=== PATIENT | male | born 1955 | race African-American/Black ===

== ENCOUNTER 2018-05-04 07:25 | Emergency (ER) | payer BC ==
[~2018-05-04] VITALS: Ht 177.8 cm; Wt 70.9 kg
[2018-05-04 07:33] VITALS: TEMP 97.8
[2018-05-04] MEDS ORDERED: PRINIVIL40 MG PO (08:02)
[2018-05-04] MEDS ORDERED: NAPROSYN500 MG PO (08:02)
[2018-05-04] MEDS ORDERED: LIPITOR 10MG10 MG PO (08:02)
[2018-05-04] MEDS ORDERED: LOPRESSOR 550 MG/TAB PO (08:02)
[2018-05-04] MEDS ORDERED: CELEXA40 MG PO (08:03)
[2018-05-04] MEDS ORDERED: FLOMAX 0.40.4 MG/CAP PO (08:03)
[2018-05-04 08:45] LABS: BASO % 1.1 % (0.0-2.0); EOS # 0.1 (0.0-0.7); EOS % 1.4 % (0-4.0); GRAN # 1.6 (1.4-6.5); HEMOGLOBIN 12.5 g/dl (13.5-18.0); LYMPH # 1.5 (1.2-3.4); LYMPH % 39.7 % (20.0-51.0); MEAN CELL VOLUME 101 fl (80.0-100.0); MEAN CORPUSCULAR HEMOGLOBIN 35 pg (27.0-31.0); MEAN CORPUSCULAR HGB CONC 35 g/dl (33.0-37.0); MEAN PLATELET VOLUME 10.7 fl (7.4-10.4); MONO # 0.5 (0.1-0.6); MONO % 13.8 % (1.7-9.3); PLATELET COUNT 212 K/mm3 (130-400); RED BLOOD COUNT 3.58 M/mm3 (4.20-5.60); REDCELL DISTRIBUTION WIDTH-CV 13.2 % (11.5-14.5)
[2018-05-04 08:51] LABS: HEMATOCRIT 36.2 % (42.0-52.0)
[2018-05-04 09:00] LABS: ALBUMIN 2.9 gm/dL (3.5-5.0); CALCIUM 8.6 mg/dL (8.4-10.2); CREATININE, serum 1.38 mg/dL (0.66-1.25); MAGNESIUM 1.9 mg/dL (1.6-2.3); POTASSIUM 3.9 mmol/L (3.4-5.0); TOTAL PROTEIN 6.3 gm/dL (6.4-8.2)
[2018-05-04 09:02] LABS: COLLECTION METHOD CLEAN CATCH
[2018-05-04 09:11] LABS: TROPONIN-I 0.018 ng/mL (0.000-0.034)
[2018-05-04 09:46] LABS: HYALINE CAST >12 /lpf; MUCOUS Present /lpf; PH 5 (5-8); SQUAMOUS EPITHELIAL 0-2 /hpf; URINE APPEARANCE Cloudy; URINE BACTERIA Rare /hpf; URINE BILIRUBIN Negative (NEGATIVE); URINE BLOOD Negative (NEGATIVE); URINE CALCIUM OXALATE CRYSTAL Present /hpf; URINE COLOR Amber; URINE GLUCOSE Negative (NEGATIVE); URINE KETONE Negative (NEGATIVE); URINE LEUKOCYTE ESTERASE Negative (NEGATIVE); URINE NITRATE Negative (NEGATIVE); URINE PROTEIN(semi-quant) 1+ (NEGATIVE); URINE RBC 0-2 /hpf; URINE UROBILINOGEN Negative (NEGATIVE)
[2018-05-04 10:37] LABS: INR 1.1 (0.8-3.0)
[2018-05-04] MEDS ORDERED: HCTZ12.5TAB PO (11:39)
--- NOTE | 2018-05-04 11:39 | NUR ---
SW received referral for A&D consult. JOSE ALBERTO met with patient and patient partner at bedside. Pt reports that he has not thought of alcohol detox and it trying to get his head wrapped around not drinking. PT declines AA support group at this time. Pt declines safe detox placement. Pt declines outpatient detox, or recovery therapy at this time. SW educated patient on alcohol recovery options and alternative safe detox methods, SW discussed safety plan with patient and creating a support group. SW gave patient information for outpatient services. Pt reports that he is going to try and quit on his own by reducing consumption and eventually stopping. Patient reports use that would indicated tolerance by consumption and present with a long history of alcohol use and overuse based on reports of consuming 1 pint of E&J enmanuel per day. It is unclear if the pt present with alcohol dependence at this time due to short interview. Patient has information to follow-up if he chooses to have therapy support. Patient presents as guarded to change. Nothing follows.
[2018-05-04 11:50] VITALS: BP 155/81; PULSE 51
== END 2018-05-04 11:50 | disposition home or self-care (01) ==
LOC: COL.ER 07:25
PROVIDERS: Emergency Medicine
DX: I95.1 Orthostatic hypotension (principal); F10.10 Alcohol abuse, uncomplicated; E46 Unspecified protein-calorie malnutrition
CPT/HCPCS: J7030

== ENCOUNTER 2019-01-03 13:30 | Emergency (ER) | payer BC ==
[~2019-01-03] VITALS: Ht 177.8 cm; Wt 85.5 kg
[~2019-01-03 13:30] MED LIST: CELEXA40 MG PO; FLOMAX 0.40.4 MG/CAP PO; HCTZ12.5TAB PO; LIPITOR 10MG10 MG PO; LOPRESSOR 550 MG/TAB PO; NAPROSYN500 MG PO; PRINIVIL40 MG PO
[2019-01-03 13:37] VITALS: TEMP 98.8
[2019-01-03 14:47] LABS: BASO % 0.5 % (0.0-2.0); GRAN # 4.5 (1.4-6.5); GRAN % 73.6 % (42.2-75.2); HEMATOCRIT 40.8 % (42.0-52.0); HEMOGLOBIN 14.1 g/dl (13.5-18.0); LYMPH # 1.1 (1.2-3.4); LYMPH % 18.2 % (20.0-51.0); MEAN CELL VOLUME 90 fl (80.0-100.0); MEAN CORPUSCULAR HEMOGLOBIN 31 pg (27.0-31.0); MEAN CORPUSCULAR HGB CONC 35 g/dl (33.0-37.0); MEAN PLATELET VOLUME 10.8 fl (7.4-10.4); MONO # 0.5 (0.1-0.6); MONO % 7.5 % (1.7-9.3); PLATELET COUNT 251 K/mm3 (130-400); RED BLOOD COUNT 4.55 M/mm3 (4.20-5.60); REDCELL DISTRIBUTION WIDTH-CV 11.5 % (11.5-14.5)
[2019-01-03 15:04] LABS: ALANINE AMINOTRANSFERASE 17 U/L (21-72); ALBUMIN 4.9 gm/dL (3.5-5.0); ALKALINE PHOSPHATASE 72 U/L (50-136); ANION GAP 15 mmol/L (7-16); AST,SGOT 27 U/L (15-37); BILIRUBIN,TOTAL 0.6 mg/dL (0.0-1.0); BLOOD UREA NITROGEN 18 mg/dL (9-20); CALCIUM 10.8 mg/dL (8.4-10.2); CARBON DIOXIDE 24 mmol/L (22-30); CHLORIDE 97 mmol/L (98-107); CREATININE, serum 1.09 (0.66-1.25); GLUCOSE 149 mg/dL (74-106); LIPASE 50 U/L (23-300); POTASSIUM 3.7 mmol/L (3.4-5.0); SODIUM 136 mmol/L (137-145); TOTAL PROTEIN 8.2 gm/dL (6.4-8.2)
[2019-01-03 15:10] LABS: C-REACTIVE PROTEIN < 0.5 mg/dL (0.0-0.9)
[2019-01-03] MEDS ORDERED: PROTONIX20 MG PO (16:05)
[2019-01-03] MEDS ORDERED: PHENERGAN 25 TA25 MG PO (16:05)
[2019-01-03 16:19] LABS: COLLECTION METHOD CLEAN CATCH
[2019-01-03 16:30] LABS: MUCOUS Present /lpf; PH 7 (5-8); SQUAMOUS EPITHELIAL 0-2 /hpf; URINE APPEARANCE Clear; URINE BACTERIA None Seen /hpf; URINE BILIRUBIN Negative (NEGATIVE); URINE BLOOD Negative (NEGATIVE); URINE COLOR Yellow; URINE GLUCOSE Negative (NEGATIVE); URINE KETONE 1+ (NEGATIVE); URINE LEUKOCYTE ESTERASE Negative (NEGATIVE); URINE NITRATE Negative (NEGATIVE); URINE PROTEIN(semi-quant) 1+ (NEGATIVE); URINE UROBILINOGEN Negative (NEGATIVE)
[2019-01-03] MEDS ORDERED: FLEXERIL 1010 MG/TAB PO (16:45)
[2019-01-03 17:23] VITALS: BP 134/67; PULSE 52
== END 2019-01-03 17:30 | disposition home or self-care (01) ==
LOC: COL.ER 13:30
PROVIDERS: Emergency Medicine
DX: R10.13 Epigastric pain (principal)
CPT/HCPCS: C9113; J0780; J1170; J7030

== ENCOUNTER → 2019-02-21 | Emergency (ER) | payer BC ==
[~2019-02-21] VITALS: Ht 175.3 cm; Wt 86.4 kg
[~2019-02-21] MED LIST changes: +FLEXERIL 1010 MG/TAB PO; +PHENERGAN 25 TA25 MG PO; +PROTONIX20 MG PO
[2019-02-21 09:13] VITALS: PULSE 54; TEMP 97.3
[2019-02-21 09:59] LABS: BASO % 0.1 % (0.0-2.0); GRAN # 5.5 (1.4-6.5); GRAN % 80.3 % (42.2-75.2); HEMATOCRIT 39.7 % (42.0-52.0); HEMOGLOBIN 13.9 g/dl (13.5-18.0); LYMPH % 14.6 % (20.0-51.0); MEAN CELL VOLUME 91 fl (80.0-100.0); MEAN CORPUSCULAR HEMOGLOBIN 32 pg (27.0-31.0); MEAN CORPUSCULAR HGB CONC 35 g/dl (33.0-37.0); MEAN PLATELET VOLUME 10.5 fl (7.4-10.4); MONO # 0.3 (0.1-0.6); MONO % 4.9 % (1.7-9.3); PLATELET COUNT 271 K/mm3 (130-400); RED BLOOD COUNT 4.38 M/mm3 (4.20-5.60); REDCELL DISTRIBUTION WIDTH-CV 11.8 % (11.5-14.5)
[2019-02-21 10:12] LABS: ALANINE AMINOTRANSFERASE 20 U/L (21-72); ALBUMIN 4.9 gm/dL (3.5-5.0); ALKALINE PHOSPHATASE 71 U/L (50-136); ANION GAP 12 mmol/L (7-16); AST,SGOT 26 U/L (15-37); BILIRUBIN,TOTAL 0.6 mg/dL (0.0-1.0); BLOOD UREA NITROGEN 17 mg/dL (9-20); CALCIUM 10.2 mg/dL (8.4-10.2); CARBON DIOXIDE 28 mmol/L (22-30); CHLORIDE 94 mmol/L (98-107); CREATININE, serum 1.16 (0.66-1.25); GLUCOSE 133 mg/dL (74-106); LIPASE 38 U/L (23-300); SODIUM 134 mmol/L (137-145); TOTAL PROTEIN 8.3 gm/dL (6.4-8.2)
[2019-02-21 10:14] LABS: C-REACTIVE PROTEIN < 0.5 mg/dL (0.0-0.9)
[2019-02-21 12:45] VITALS: BP 137/66
== END ==
LOC: COL.ER 08:56
PROVIDERS: Emergency Medicine
DX: R10.13 Epigastric pain (principal)
CPT/HCPCS: C9113; J0780; J1170; J7030

== ENCOUNTER → 2019-09-27 | Outpatient (CLI) | payer BC | LOC: COL.RAD 14:23 | DX: M51.16 Intervertebral disc disorders with radiculopathy, lumbar region (principal); M43.16 Spondylolisthesis, lumbar region; M48.061 Spinal stenosis, lumbar region without neurogenic claudication ==

== ENCOUNTER → 2019-10-26 | Outpatient (CLI) | payer BC | LOC: MHCPAIN 13:44 | DX: M47.817 Spondylosis without myelopathy or radiculopathy, lumbosacral region (principal); M54.5 Low back pain; M53.3 Sacrococcygeal disorders, not elsewhere classified; G89.29 Other chronic pain | CPT/HCPCS: G0463 ==

== ENCOUNTER → 2019-11-10 | Outpatient (CLI) | payer BC | LOC: MHCPAIN 13:46 | DX: M47.817 Spondylosis without myelopathy or radiculopathy, lumbosacral region (principal); M54.5 Low back pain ==

== ENCOUNTER → 2019-11-16 | Outpatient (CLI) | payer BC | LOC: MHCPAIN 09:08 | DX: M47.817 Spondylosis without myelopathy or radiculopathy, lumbosacral region (principal); M54.5 Low back pain; M53.3 Sacrococcygeal disorders, not elsewhere classified; G89.29 Other chronic pain | CPT/HCPCS: G0463 ==

== ENCOUNTER → 2019-11-24 | Outpatient (CLI) | payer BC | LOC: MHCPAIN 13:23 | DX: M47.817 Spondylosis without myelopathy or radiculopathy, lumbosacral region (principal); M54.5 Low back pain ==

== ENCOUNTER → 2019-11-30 | Outpatient (CLI) | payer BC | LOC: MHCPAIN 14:02 | DX: M47.817 Spondylosis without myelopathy or radiculopathy, lumbosacral region (principal); M54.5 Low back pain; M53.3 Sacrococcygeal disorders, not elsewhere classified | CPT/HCPCS: G0463 ==

== ENCOUNTER → 2019-12-01 | Outpatient (CLI) | payer BC | LOC: MHCPAIN 08:26 | DX: M47.817 Spondylosis without myelopathy or radiculopathy, lumbosacral region (principal); M54.5 Low back pain; M53.3 Sacrococcygeal disorders, not elsewhere classified | CPT/HCPCS: J2250; J3010 ==

== ENCOUNTER → 2019-12-19 | Outpatient (CLI) | payer BC | LOC: MHCPAIN 11:58 | DX: M47.817 Spondylosis without myelopathy or radiculopathy, lumbosacral region (principal); M54.5 Low back pain | CPT/HCPCS: J2250; J3010 ==

== ENCOUNTER → 2020-02-01 | Outpatient (CLI) | payer BC | LOC: MHCPAIN 13:03 | DX: M47.817 Spondylosis without myelopathy or radiculopathy, lumbosacral region (principal); M54.5 Low back pain; M53.3 Sacrococcygeal disorders, not elsewhere classified; G89.29 Other chronic pain; M54.16 Radiculopathy, lumbar region | CPT/HCPCS: G0463 ==

== ENCOUNTER → 2020-02-02 | Outpatient (CLI) | payer BC | LOC: MHCPAIN 07:57 | DX: M47.817 Spondylosis without myelopathy or radiculopathy, lumbosacral region (principal); M54.16 Radiculopathy, lumbar region | CPT/HCPCS: J1100; Q9967 ==

== ENCOUNTER → 2020-02-08 | Outpatient (CLI) | payer BC | LOC: COL.RAD 15:52 | DX: M43.16 Spondylolisthesis, lumbar region (principal) ==

== ENCOUNTER → 2020-02-08 | Outpatient (CLI) | payer BC | LOC: MHCPAIN 15:02 | DX: M47.817 Spondylosis without myelopathy or radiculopathy, lumbosacral region (principal); M54.5 Low back pain; M53.3 Sacrococcygeal disorders, not elsewhere classified; G89.29 Other chronic pain | CPT/HCPCS: G0463 ==

== ENCOUNTER → 2020-02-09 | Outpatient (CLI) | payer BC | LOC: COL.RAD 14:03 | DX: M16.0 Bilateral primary osteoarthritis of hip (principal) ==

== ENCOUNTER → 2020-02-28 | Outpatient (CLI) | payer BC | LOC: COL.RAD 10:40 | DX: M43.16 Spondylolisthesis, lumbar region (principal); M47.816 Spondylosis without myelopathy or radiculopathy, lumbar region ==

== ENCOUNTER → 2020-05-09 | Outpatient (CLI) | payer BC | LOC: COL.RAD 07:54 | DX: M25.551 Pain in right hip (principal); M25.552 Pain in left hip | CPT/HCPCS: J3301; Q9967 ==

== ENCOUNTER → 2020-09-10 | Outpatient (CLI) | payer BC | LOC: COL.RAD 08:15 | DX: M47.26 Other spondylosis with radiculopathy, lumbar region (principal); M48.062 Spinal stenosis, lumbar region with neurogenic claudication; M48.07 Spinal stenosis, lumbosacral region; D17.79 Benign lipomatous neoplasm of other sites; Z98.1 Arthrodesis status ==

== ENCOUNTER → 2020-10-08 | Outpatient (CLI) | payer BC | LOC: COL.RAD 08:18 | DX: M25.551 Pain in right hip (principal); M25.552 Pain in left hip | CPT/HCPCS: J3301; Q9967 ==

== ENCOUNTER → 2021-02-05 | Outpatient (CLI) | payer BC | LOC: COL.RAD 12:30 | DX: M25.551 Pain in right hip (principal); M25.552 Pain in left hip | CPT/HCPCS: J3301; Q9967 ==

== ENCOUNTER → 2021-06-19 | Outpatient (CLI) | payer BC | LOC: COL.RAD 07:44 | DX: M25.851 Other specified joint disorders, right hip (principal); M25.852 Other specified joint disorders, left hip | CPT/HCPCS: J3301; Q9967 ==

== ENCOUNTER → 2021-10-25 | Outpatient (CLI) | payer BC | LOC: COL.RAD 10-22 09:00 | DX: M25.552 Pain in left hip (principal); M25.551 Pain in right hip | CPT/HCPCS: J3301; Q9967 ==

== ENCOUNTER 2022-01-17 22:07 | Emergency (ER) | payer BC ==
[~2022-01-17] VITALS: Ht 180.3 cm; Wt 88.2 kg
[2022-01-17 22:14] VITALS: TEMP 97.5
[2022-01-17 22:50] LABS: BASO % 0.5 % (0.0-2.0); EOS % 0.3 % (0.0-4.0); GRAN # 5.1 K/mm3 (1.4-6.5); GRAN % 79.5 % (42.2-75.2); HEMOGLOBIN 11.8 g/dl (13.5-18.0); LYMPH # 0.8 K/mm3 (1.2-3.4); LYMPH % 12.9 % (20.0-51.0); MEAN CELL VOLUME 92 fl (80.0-100.0); MEAN CORPUSCULAR HEMOGLOBIN 33 pg (27-31); MEAN CORPUSCULAR HGB CONC 36 g/dl (33.0-37.0); MONO # 0.4 K/mm3 (0.1-0.6); MONO % 6.5 % (1.7-9.3); PLATELET COUNT 377 K/mm3 (130-400); RED BLOOD COUNT 3.55 M/mm3 (4.20-5.60); REDCELL DISTRIBUTION WIDTH-CV 12.3 % (11.5-14.5)
[2022-01-17 22:54] LABS: HEMATOCRIT 32.5 % (42.0-52.0)
[2022-01-17 23:11] LABS: BILIRUBIN,TOTAL 0.4 mg/dL (0.2-1.2); CALCIUM 10.6 mg/dL (8.4-10.2); CREATININE, serum 1.3 mg/dL (0.72-1.25); POTASSIUM 4.2 mmol/L (3.5-4.5); TOTAL PROTEIN 7.5 gm/dL (6.2-8.1)
[2022-01-17 23:17] LABS: TROPONIN-I 0.01 ng/mL (0.00-0.033)
[2022-01-17 23:34] LABS: COLLECTION METHOD CLEAN CATCH
[2022-01-17 23:43] LABS: PH 8.5 (5.0-8.5); URINE APPEARANCE Clear (CLEAR/HAZY); URINE BLOOD TRACE-INTACT (NEGATIVE); URINE COLOR Yellow (YELLOW); URINE GLUCOSE Negative (NEGATIVE); URINE KETONE 3+ (NEGATIVE); URINE NITRATE Negative (NEGATIVE); URINE PROTEIN(semi-quant) Negative (NEGATIVE)
[2022-01-18 00:26] LABS: SQUAMOUS EPITHELIAL 0-2 /hpf (0-10); URINE BACTERIA Rare /hpf (NONE SEEN)
[2022-01-18] MEDS ORDERED: CARAFATE 1GM1 G PO (00:46)
[2022-01-18] MEDS ORDERED: PEPCID 20MG TAB20 MG PO (00:46)
[2022-01-18] MEDS ORDERED: ZOFRAN ODT4 MG PO (00:46)
[2022-01-18 00:55] VITALS: BP 171/82; PULSE 92
== END 2022-01-18 00:59 | disposition home or self-care (01) ==
LOC: COL.ER 22:07
PROVIDERS: Emergency Medicine
DX: K56.600 Partial intestinal obstruction, unspecified as to cause (principal); N17.9 Acute kidney failure, unspecified; K52.9 Noninfective gastroenteritis and colitis, unspecified
CPT/HCPCS: J1790; J2405; J3010; J7120; Q9967

== ENCOUNTER 2023-11-01 17:25 | Emergency (ER) | payer BC, MEDICARE ==
[~2023-11-01] VITALS: Ht 177.8 cm; Wt 97.7 kg
[~2023-11-01 17:25] MED LIST changes: +CARAFATE 1GM1 G PO; +PEPCID 20MG TAB20 MG PO; +ZOFRAN ODT4 MG PO
[2023-11-01] MEDS ORDERED: Ibuprofen 400 MG TAB PO ONE (18:00)
[2023-11-01] MEDS ORDERED: Acetaminophen 325 MG TAB PO ONE (18:15)
[2023-11-01] MEDS ORDERED: Home HYDROcodone/Acetaminophen 5/325 MG #4 TABS/PACK PO ONE (19:00)
[2023-11-01 19:14] VITALS: BP 123/76; PULSE 73; TEMP 98.2
== END 2023-11-01 19:14 | disposition home or self-care (01) ==
LOC: COL.ER 17:25
DX: S52.021A Displaced fracture of olecranon process without intraarticular extension of right ulna, initial encounter for closed fracture (principal); X50.1XXA Overexertion from prolonged static or awkward postures, initial encounter; W18.30XA Fall on same level, unspecified, initial encounter